=== PATIENT | female | born 1980 | race Caucasian/White ===

== ENCOUNTER → 2016-06-10 | Outpatient (CLI) | payer BC ==
--- NOTE | 2016-06-10 12:44 | MM ---
Reason for exam: screening (asymptomatic). Baseline mammogram. History: Reductions of both breasts, 1998. Physical Findings: Nurse did not find any significant physical abnormalities on exam. MG Screening Mammo w CAD Bilateral CC and MLO view(s) were taken. There are scattered fibroglandular densities. No suspicious calcifications are seen. Focal asymmetry in the retroareolar left breast. These results were verbally communicated with the patient and result sheet given to the patient on 06/10/16. ASSESSMENT: Incomplete: need additional imaging evaluation, BI-RAD 0 RECOMMENDATION: Special view mammogram of the left breast.
--- NOTE | 2016-06-10 12:46 | MM ---
Reason for exam: additional evaluation requested from abnormal screening. History: Reductions of both breasts, 1998. Physical Findings: Breast exam preformed at baseline screening. MG Work Up Mamm w CAD LT ML and spot compression CC view(s) were taken of the left breast. There are scattered fibroglandular densities. There is no discrete abnormality including area of concern. These results were verbally communicated with the patient and result sheet given to the patient on 06/10/16. ASSESSMENT: Negative, BI-RAD 1 RECOMMENDATION: Routine screening mammogram of both breasts at age 39.
== END | disposition home or self-care (01) ==
LOC: RADMAMWWP 10:48
PROVIDERS: ATTEND Obstetrics & Gynecology
DX: Z12.31 Encounter for screening mammogram for malignant neoplasm of breast (principal); R92.2 Inconclusive mammogram; R92.8 Other abnormal and inconclusive findings on diagnostic imaging of breast
CPT/HCPCS: G0202; G0206

== ENCOUNTER → 2024-06-08 | Outpatient (CLI) | payer BC ==
--- NOTE | 2024-06-08 16:43 | CT ---
EXAMINATION TYPE: CT angio chest DATE OF EXAM: 06/08/2024 COMPARISON: 04/06/2024 CLINICAL INDICATION: Female, 43 years old with history of I26.99 PULMONARY EMBOLISM WITHOUT ACUTE COR PULMON; PHH, Recent PE, follow up TECHNIQUE: CTA scan of the thorax is performed with IV Contrast, patient injected with 70 mL of Isovue 370, pulm onary embolism protocol. MIP images are created and reviewed. CT DLP: [address] CTDI: mGy Automated exposure control for dose reduction was used. FINDINGS: The pulmonary emboli seen on the prior study have resolved. There are no filling defects within the p ulmonary arterial circulation of the current study. The consolidation in the right upper lobe seen on the prior study has resolved. Currently, the lungs are clear without consolidative or interstitial opacity. There are no suspicious lung masses or nodules. There is no pleural effusion or pneumothorax. Limited scanning of the upper abdomen reveals no gross abnormality. No focal osseous lesions are seen. IMPRESSION: 1. No evidence of pulmonary embolism. The previously described pulmonary emboli on 04/06/2024 have res olved. 2. resolution of the right lung consolidation seen on the prior study. 3. No acute cardiopulmonary disease. [facility], Workstation: [facility], 06/08/2024 4:41 PM
== END | disposition home or self-care (01) ==
LOC: RADCTMAIN 15:51
PROVIDERS: ATTEND Internal Medicine Critical Care Medicine
DX: I26.99 Other pulmonary embolism without acute cor pulmonale (principal); Z86.711 Personal history of pulmonary embolism
CPT/HCPCS: 71275; Q9967